=== PATIENT | male | born 1990 | race Caucasian/White ===

== ENCOUNTER 2023-11-28 07:32 | Emergency (ER) | payer OTHER, SELFPAY ==
[2023-11-28 07:37] VITALS: BP 137/78; BP 140/84; PULSE 75; PULSE 78; RESP 18; O2SAT 98; BMI 24.9
[2023-11-28 07:45] VITALS: TEMP 36.3
[2023-11-28] MEDS: Amoxicillin/Potassium Clav 875 MG TABLET PO (07:55)
[2023-11-28] MEDS: Lidocaine HCl 1 % MPF 5 ML VIAL SUBCUT (07:55)
--- NOTE | 2023-11-28 07:58 | ED.DENTAL ---
HPI - Dental/Oral General Chief complaint: Dental/Oral Stated complaint: R SIDED TOOTH PAIN Time Seen by Provider: 11/28/23 07:51 Source: patient Mode of arrival: ambulatory Limitations: no limitations History of Present Illness HPI Narrative: 33 yo male with possible lyme disease but significant poor dentition here with c/o worsening pain of right lower pain thinks he cracked it on something - dentist wont pull it until he gets worked for lyme disease. MD Complaint: tooth pain and tooth injury Location: Tooth # (27-30) Onset (ago): hour(s) (few) Duration: constant Severity: severe Relieving factors: nothing Exacerbating factors: chewing, cold and heat Context: history of dental caries, trauma (mechanism) and poor dental care Associated symptoms: gum swelling Treatment prior to arrival: topical analgesic and oral analgesic Related Data Previous Rx's Medication Instructions Recorded amoxicillin 875 mg-potassium 1 tab PO BID #13 tabs 11/28/23 clavulanate 125 mg tablet hydrocodone 5 mg-acetaminophen 325 1 tab PO Q6H PRN pain #10 tabs 11/28/23 mg tablet Allergies Allergy/AdvReac Type Severity Reaction Status Date / Time hydroxyzine Allergy Anaphylaxis Verified 11/28/23 07:43 Sulfa (Sulfonamide Allergy Anxiety Verified 11/28/23 07:52 Antibiotics) ibuprofen AdvReac Unknown Verified 11/28/23 07:43 Review of Systems Review of Systems: Constitutional : No Fever, No Chills ENT/Mouth : No swallowing difficulty, no change in voice, positive dental pain, positive jaw pain, no facial swelling Eyes: No Eye Pain, No Swelling Cardiovascular : No Chest Pain, No SOB Respiratory : No Cough, No Sputum Gastrointestinal : No Nausea, No Vomiting, No Diarrhea Genitourinary : No Dysuria Musculoskeletal : No Myalgias Skin : No rash Neuro : No Weakness, No Numbness, No Headache PMFSH Past Medical History Medical History Dental caries Social History Social History (Updated 11/28/23 @ 08:06 by Socorro Lopez DO) Patient Tobacco Use Status: Tobacco use Unknown Physical Exam Vital Signs: Vital Signs: Last Vital Signs Temp 97.3 F 11/28/23 07:45 Pulse 75 11/28/23 07:37 Resp 18 11/28/23 07:37 BP 137/78 11/28/23 07:37 Pulse Ox 98 11/28/23 07:37 O2 Del Method Room Air 11/28/23 07:37 BMI result Body Mass Index 24.9 Appearance: Alert. Oriented X3. No acute distress. Eyes: Pupils equal, round and reactive to light. ENT: Pharynx normal. no trismus - R lower entire molars sig decay no abscess or fluctuance noted cracked teeth with pulp exposed no sublingual or submandibular swelling Neck: Normal inspection. Neck supple. CVS: Pulses normal. Respiratory: No respiratory distress. Abdomen: Soft and nontender. Skin: Skin warm and dry. Normal skin color. Normal skin turgor. Extremities: No lower extremity edema. Neuro: Oriented X 3. No motor deficit. No sensory deficit. Medications Administered Discontinued Medications Generic Name Dose Route Start Last Admin Trade Name Freq PRN Reason Stop Dose Admin Amoxicillin/Clavulanate Potassium 875 mg 11/28/23 07:51 11/28/23 07:55 Amoxicillin/Potassium Clav 875 Mg Tablet PO 11/28/23 07:52 875 mg ONCE ONE Administration Lidocaine HCl 5 ml 11/28/23 07:51 11/28/23 07:55 Lidocaine Hcl 1 % Mpf 5 Ml Vial SUBCUT 11/28/23 07:52 5 ml ONCE ONE Administration Medical Decision Making Medical Decision Making [facility] Narrative: 33 yo male with sig poor dental care and dental decay now wiht likely fractured tooth and severe pain at risk for infection at this time will start on short course pain medications and antibiotics. block performed with some improvement. no signs of deeper space infection, no abscess noted no sublingual or submandibular swelling Differential Diagnosis Differential Diagnoses: The differential diagnosis associated with the presentation includes dental decay, toothache, tooth fracture Independent Historian Clinical information obtained from an independent historian. History obtained from or confirmed by: EMS Prescription Management I considered prescription management with: Pain Medication and Antibiotic Procedures Nerve Block Nerve Block 1: Time out performed: Yes Local Anesthetic: lidocaine 1% Amount of anesthesia used (mL): 3 Side: right Intraoral Nerve Block: inferior alveolar Procedure Successful: Yes Patient Tolerated Procedure: well and no complications Discharge Plan Discharge Clinical Impression: Toothache, Dental caries Patient Disposition: Home, Self-Care Instructions: Toothache (ED) Additional Instructions: take all antibiotics. return for worsening pain, swelling, fevers, or any other concerns. On amoxicillin-clavulanate, softer bowel movements are to be expected. Call your provider if you move your bowels more than 4 times a day, your bowel movements are almost all liquid, or you get a rash.? follow up with a dentist closely Prescriptions: New hydrocodone-acetaminophen 5-325 mg tablet 1 tab PO Q6H PRN (Reason: pain) Qty: 10 0RF Rx Instructions: partial fill okay; Partial Fill upon patient request. amoxicillin-pot clavulanate 875-125 mg tablet 1 tab PO BID Qty: 13 0RF Stand Alone Forms: Work/School Release
== END 2023-11-28 08:10 | disposition home or self-care (01) ==
LOC: HO.ED 08:07
PROVIDERS: Emergency Provider Emergency Medicine
DX: K08.89 Other specified disorders of teeth and supporting structures (principal); K02.9 Dental caries, unspecified
CPT/HCPCS: 64400; 99282; 99284

== ENCOUNTER 2024-04-09 11:02 | Emergency (ER) | payer OTHER, SELFPAY ==
--- NOTE | ~2024-04-09 | XR_ITS ---
EXAMINATION: XR FOOT, LEFT CLINICAL INFORMATION: Trauma, stepped on nail COMPARISON: None available. TECHNIQUE: 3 views of the left foot. FINDINGS: The arrow placed on the lateral radiograph shows at the site of injury is plantar aspect of forefoot. No radiopaque foreign body or soft tissue gas. Bones, joints and soft tissues have a normal appearance. There is a bone island of the proximal phalanx of the third toe. XR/XR foot LT min 3V IMPRESSION: * No evidence of osseous injury in the left foot. * No evidence of a radiopaque foreign body.
[2024-04-09 11:08] VITALS: BP 135/85; PULSE 100; RESP 18; TEMP 36.7; O2SAT 98; BMI 25.1
--- NOTE | 2024-04-09 11:48 | ED_ITS ---
HPI - Wound/Laceration General Chief Complaint: Wound/Laceration Stated Complaint: stepped on nail, unsure if still in foot Time Seen by Provider: 04/09/24 11:48 Source: patient Mode of arrival: ambulatory Limitations: no limitations History of Present Illness ED Provider: Jose Luis HPI narrative: Patient is a 33-year-old male presenting to the emergency department with complaint of left foot pain. States he was doing demolition on his deck prior to arrival, was ripping some lattice off and walking through grass when he stepped on an unknown object. He thinks it was a nail but is unsure. Unsure if he has any retained foreign body in his foot. Unknown last tetanus. Denies any history of diabetes. Denies any new weakness, numbness, tingling. Onset (ago): hour(s) Extremity Location: left: foot Place: home Patient tetanus UTD: No Context: accidental Associated symptoms: pain Related Data Previous Rx's ?Medication ?Instructions ?Recorded amoxicillin 875 mg-potassium 1 tab PO BID #13 tabs 11/28/23 clavulanate 125 mg tablet hydrocodone 5 mg-acetaminophen 325 1 tab PO Q6H PRN pain #10 tabs 11/28/23 mg tablet ciprofloxacin HCl 500 mg tablet 500 mg PO BID #14 tabs 04/09/24 Allergies Allergy/AdvReac Type Severity Reaction Status Date / Time hydroxyzine Allergy Anaphylaxis Verified 04/09/24 11:09 Sulfa (Sulfonamide Allergy Anxiety Verified 04/09/24 11:09 Antibiotics) ibuprofen AdvReac Unknown Verified 04/09/24 11:09 Review of Systems 2 Review of Systems: As per HPI. Yes all other systems are reviewed and are negative Constitutional: Constitutional: Reports as per HPI [facility] Past Medical History Medical History Dental caries Social History Social History (Updated 11/28/23 @ 08:06 by Socorro Lopez DO) Patient Tobacco Use Status: Tobacco use Unknown Advance Directives: No Advance Directives Information Provided: No Do you have a plan to hurt others: No Plan Physical Exam 2 Vital Signs: Vital Signs: Last Vital Signs Temp 98.1 F 04/09/24 11:08 Pulse 100 04/09/24 11:08 Resp 18 04/09/24 11:08 BP 135/85 04/09/24 11:08 Pulse Ox 98 04/09/24 11:08 O2 Del Method Room Air 04/09/24 11:08 BMI result Body Mass Index 25.1 Vital signs have been reviewed and appear to be correct. Blood pressure normal. Heart rate normal. Respiratory rate normal. Temperature normal. Oxygen saturation normal. Const: General: cooperative, healthy appearing and no acute distress O rientation/consciousness: oriented to person, oriented to place, oriented to time and patient oriented x3 Limitations: no limitations HEENT: Head: Yes normocephalic and Yes atraumatic Ears: external ears normal General nose exam: Normal external nose present Face and sinus: Yes face symmetric Mouth: oropharynx normal and moist mucous membranes Throat: Yes uvula midline Eyes: Pupils: Equal, round and reactive pupils present Neck: Neck: Yes normal visual inspection and Yes supple Resp: Effort & Inspection: normal respiratory effort and able to speak in complete sentences Auscultation: clear to auscultation bilaterally Cardio: Rate: regular rate Rhythm: regular rhythm Heart sounds: S1 normal heart sound present and S2 normal heart sound present Skin: General skin exam: elasticity normal and turgor normal Neuro: General: oriented to person, oriented to place, oriented to time, patient oriented x3, moves all extremities, no focal motor deficits and CN's II- XI intact bilaterally Cranial nerves: Yes Equal, round and reactive pupils present Cognition (Neuro): normal cognition Extrem: General: Yes full ROM, Yes no pedal edema and Yes no calf tenderness Ankle/foot/toe images: 1. puncture wound to sole without surrounding erythema Psych: Mental Status: mental status grossly normal Affect: normal affect Thought process: Normal thought process present Medications Administered Discontinued Medications Generic Name Dose Route Start Last Admin Trade Name Freq PRN Reason Stop Dose Admin Diphtheria/Tetanus/Acell Pertussis 0.5 ml 04/09/24 11:49 04/09/24 12:02 Diphth,Pertus(Acell),Tet Adult 0.5 Ml Syringe IM 04/09/24 11:50 0.5 ml .ONCE ONE Administration Ketorolac Tromethamine 30 mg 04/09/24 12:29 04/09/24 12:34 Ketorolac Tromethamine 30 Mg/Ml Vial IM 04/09/24 12:30 30 mg ONCE ONE Administration Medical Decision Making Medical Decision Making MDM Narrative: Patient is a 33-year-old male presenting to the emergency department with complaint of left foot pain. On exam patient is awake, A+Ox3, VS WNL, afebrile, normal neurological exam without focal deficits, physical exam findings as above. Given reported symptoms and physical exam findings, initial differential includes puncture wound, foreign body of foot, less likely fracture. Patient specifically requesting toradol for pain, has ibuprofen allergy but states has tolerated toradol before. X-ray notable for no foreign body or osseous injury. My interpretation is in agreement with the radiologist's interpretation. Patient updated on results. Will treat with Cipro as nail did penetrate sole of shoe. Patient warned of risk of tendon rupture, advised to take full course and prescribed. Return precautions discussed at bedside. Patient verbalized understanding of and agreement with plan. Differential Diagnosis Differential Diagnoses: The differential diagnosis associated with the presentation includes As per [facility]. Independent Interpretation I performed an independent interpretation of an: Plain X-Ray Interpretation: No evidence of fracture or retained foreign body left foot Radiology Impression Discussion of test interpretation with radiology: I have reviewed the radiologist's reading. Radiologist Impression: XR/XR foot LT min 3V IMPRESSION: * No evidence of osseous injury in the left foot. * No evidence of a radiopaque foreign body. External Record Review External record reviewed: Inpatient record, Office record and Outpatient record Prescription Management I considered prescription management with: Antibiotic Discharge Plan Discharge Clinical Impression: Puncture wound of foot, left Patient Disposition: Home, Self-Care Instructions: Ciprofloxacin (By mouth), Puncture Wound (DC), Puncture Wound in the Foot (ED) Additional Instructions: You were seen in the emergency department today for puncture wound of your left foot. Your x-ray did not show evidence of a retained foreign body or fracture. Your tetanus (Tdap) was updated at today's visit. You are being treated with a course of antibiotics, please complete the full course as prescribed to prevent infection. Please follow-up with your primary care provider. We recommend that you assess the wound daily for increasing redness, swelling, thick yellow drainage and return if these or a fever occur. Prescriptions: New ciprofloxacin HCl 500 mg tablet 500 mg PO BID Qty: 14 0RF No Action hydrocodone-acetaminophen 5-325 mg tablet 1 tab PO Q6H PRN (Reason: pain) Qty: 10 0RF Rx Instructions: partial fill okay; Partial Fill upon patient request. amoxicillin-pot clavulanate 875-125 mg tablet 1 tab PO BID Qty: 13 0RF Print Language: Czech
[2024-04-09] MEDS: Diphth,Pertus(ACell),Tet Adult 0.5 ML SYRINGE IM (12:02)
[2024-04-09] MEDS: Ketorolac Tromethamine 30 MG/ML VIAL IM (12:34)
[2024-04-09 13:24] VITALS: BP 135/85; PULSE 100; RESP 18; TEMP 36.7; O2SAT 98
[2024-04-09 13:27] VITALS: BP 135/85; PULSE 100; RESP 18; TEMP 36.7; O2SAT 98
== END 2024-04-09 13:28 | disposition home or self-care (01) ==
PROVIDERS: Emergency Provider Emergency Medicine
DX: S91.332A Puncture wound without foreign body, left foot, initial encounter (principal); M79.672 Pain in left foot; Y28.9XXA Contact with unspecified sharp object, undetermined intent, initial encounter; Y93.9 Activity, unspecified; Y92.009 Unspecified place in unspecified non-institutional (private) residence as the place of occurrence of the external cause; Y99.8 Other external cause status; Z23 Encounter for immunization
CPT/HCPCS: 73630; 90471; 90715; 96372; 99283; 99284; J1885